=== PATIENT | female | born 1985 | race African-American/Black ===

== ENCOUNTER 2017-01-27 13:52 | Emergency (ER) | payer OTHER ==
[2017-01-27] MEDS ORDERED: Adacel (T-DAP) 0.5 ML VIAL ONE (14:31)
== END 2017-01-27 14:37 | disposition home or self-care (01) ==
LOC: NAV ERS 13:52
DX: T63.481A Toxic effect of venom of other arthropod, accidental (unintentional), initial encounter (principal); R21 Rash and other nonspecific skin eruption; L08.9 Local infection of the skin and subcutaneous tissue, unspecified; E11.9 Type 2 diabetes mellitus without complications; Z87.891 Personal history of nicotine dependence
CPT/HCPCS: 90471; 90715

== ENCOUNTER 2017-03-19 09:57 | Emergency (ER) | payer OTHER ==
[~2017-03-19 09:57] MED LIST: Iopamidol 370 76% 100 ML VIAL ONE
[2017-03-19] MEDS ORDERED: Ketorolac Tromethamine 30 MG/ML VIAL ONE (10:27)
[2017-03-19 10:47] LABS: Bilirubin Negative (Negative); Blood, Urine Negative (Negative); Clarity Clear (Clear); Glucose, Urine (Dipstick) Negative (Negative); Leukocyte Trace (Negative); Nitrite Negative (Negative); Protein, Urine (Dipstick) Negative (Neg-Trace); Specific Gravity, Urine 1.025 (1.005-1.030); Urobilinogen 0.2 mg/dL (0.2-1.0); pH, Urine 5.5 (5.0-9.0)
[2017-03-19 11:03] LABS: ALT (SGPT) 23 U/L (8-55); AST (SGOT) 15 U/L (5-34); Albumin 3.4 g/dL (3.5-5.0); Alkaline Phosphatase 91 U/L (40-150); Anion Gap 14 mmol/L (10-20); BUN (Urea Nitrogen) 14 mg/dL (7.0-18.7); Bilirubin, Total 0.2 mg/dL (0.2-1.2); Calc. Creatinine Clearance 0 mL/min (70-130); Calcium 8.6 mg/dL (7.8-10.44); Carbon Dioxide 23 mmol/L (22-29); Chloride 105 mmol/L (98-107); Estimated GFR-MDRD 86; Globulin 3.7 g/dL (2.4-3.5); Glucose 191 mg/dL (70-105); Protein, Total 7.1 g/dL (6.0-8.3); Sodium 138 mmol/L (136-145)
[2017-03-19 11:06] LABS: Bacteria/HPF 1+ HPF (None Seen); Other Microscopic Description NO; RBC/HPF None Seen HPF (0-3); Trichomonas/HPF 1+ HPF (None Seen)
--- NOTE | 2017-03-19 12:41 | CT ---
CT OF ABDOMEN AND PELVIS PERFORMED WITH INTRAVENOUS CONTRAST ENHANCEMENT: History: Patient with history of right ovarian cyst. Has right lower abdominal pain. Comparison: 07-06-16 CT. FINDINGS: The lung bases are clear. There is diffuse fatty changes of the liver. It measures 22 cm in length. The spleen is within dianna l limits of size. Pancreas and gallbladder regions are unremarkable. Right and left adrenal glands and right and left kidneys are normal. There is no significant periaor tic or mesenteric adenopathy. CT OF PELVIS PERFORMED WITH CONTRAST ENHANCEMENT: A 3.8 cm hypodense lesion involving the right ovary was noted on the prior exam. This is increased s lightly in size and measures in the 4 cm range on today's study. No free fluid. No adenopathy or mas s. No inflammatory process. IMPRESSION: 1. Diffuse fatty changes of the liver which is borderline enlarged. 2. Approximately 4 cm right ovarian cystic appearing lesion which is increased slightly in size as c ompared to the previous exam. Consideration for pelvic ultrasound may be indicated if the patient's pain is related to this area. POS: [facility]
[2017-03-19 14:01] LABS: White Blood Cell (WBC) Count 8.8 thou/uL (4.8-10.8)
[2017-03-19 14:02] LABS: Eosinophils 1 % (0-10); Hemoglobin 10.8 g/dL (12.0-16.0); Lymphocytes 31 % (21-51); MDiff Complete? YES; Manual Diff?? YES; Mean Corpuscular HGB CONC 30.3 g/dL (32.0-36.0); Mean Corpuscular Hemoglobin 22.5 pg (27.0-31.0); Mean Corpuscular Volume 74.1 fL (81.0-99.0); Mean Platelet Volume 8.2 fL (7.4-10.4); Monocytes 4 % (0-10); Neutrophil 64 % (42-75); Platelet Count 267 thou/uL (130-400); RBC Distribution Width 15.7 % (11.5-14.5)
[2017-03-19 14:03] LABS: Anisocytosis SLIGHT = 6-15 cells (100X) (0-5/hpf); BHCG - Serum NEGATIVE (NEGATIVE); Microcytosis SLIGHT = 6-15 cells (100X) (0-5/hpf); Pregs Control Bar Appear? YES (CONTROL BAR)
[2017-03-19 15:53] LABS: PLT Morphology Comment Appears Adequate
== END 2017-03-19 12:35 | disposition home or self-care (01) ==
LOC: NAV ERS 09:57
DX: N83.201 Unspecified ovarian cyst, right side (principal); E11.9 Type 2 diabetes mellitus without complications; Z87.891 Personal history of nicotine dependence
CPT/HCPCS: 74177; 80053; 81003; 81015; 84703; 85025; 96374; J1885

== ENCOUNTER 2017-08-30 00:21 | Emergency (ER) | payer OTHER, SELFPAY ==
[2017-08-30] MEDS ORDERED: Ibuprofen 800 MG TAB ONE (00:34)
== END 2017-08-30 00:47 | disposition home or self-care (01) ==
LOC: NAV ERS 00:21
DX: H60.91 Unspecified otitis externa, right ear (principal); E66.9 Obesity, unspecified; E11.9 Type 2 diabetes mellitus without complications; Z87.891 Personal history of nicotine dependence
CPT/HCPCS: 99282

== ENCOUNTER 2018-03-09 14:15 | Emergency (ER) | payer OTHER, SELFPAY ==
[2018-03-09] MEDS ORDERED: diphenhydrAMINE 50 MG/ML VIAL ONE (14:21)
[2018-03-09] MEDS ORDERED: methylPREDNISolone Sod Succ/PF 125 MG/2 ML VIAL ONE (14:21)
== END 2018-03-09 14:55 | disposition home or self-care (01) ==
LOC: NAV ERS 14:15
DX: T78.40XA Allergy, unspecified, initial encounter (principal); E11.9 Type 2 diabetes mellitus without complications; F17.210 Nicotine dependence, cigarettes, uncomplicated; Z79.899 Other long term (current) drug therapy
CPT/HCPCS: 96372; 99406; J1200; J2930

== ENCOUNTER 2018-05-13 04:21 | Emergency (ER) | payer OTHER, SELFPAY ==
[2018-05-13] MEDS ORDERED: Cyclobenzaprine 10 MG TAB ONE (04:46)
[2018-05-13] MEDS ORDERED: Ketorolac Tromethamine 60 MG/2 ML VIAL ONE (04:46)
== END 2018-05-13 05:04 | disposition home or self-care (01) ==
LOC: NAV ERS 04:21
DX: M43.6 Torticollis (principal); E11.9 Type 2 diabetes mellitus without complications; F17.210 Nicotine dependence, cigarettes, uncomplicated; Z79.84 Long term (current) use of oral hypoglycemic drugs
CPT/HCPCS: 96372; J1885

== ENCOUNTER 2018-05-14 12:49 | Emergency (ER) | payer OTHER, SELFPAY ==
[2018-05-14] MEDS ORDERED: Ondansetron HCl/PF 4 MG/2 ML Vial ONE (13:38)
[2018-05-14 14:00] LABS: ALT (SGPT) 24 U/L (8-55); AST (SGOT) 15 U/L (5-34); Albumin 3.7 g/dL (3.5-5.0); Alkaline Phosphatase 90 U/L (40-150); Anion Gap 13 mmol/L (10-20); BUN (Urea Nitrogen) 17 mg/dL (7.0-18.7); Bilirubin, Total 0.1 mg/dL (0.2-1.2); Calc. Creatinine Clearance 0 mL/min (70-130); Calcium 8.8 mg/dL (7.8-10.44); Carbon Dioxide 23 mmol/L (22-29); Chloride 105 mmol/L (98-107); Estimated GFR-MDRD Greater than 90; Globulin 3.2 g/dL (2.4-3.5); Glucose 153 mg/dL (70-105); Potassium 3.9 mmol/L (3.5-5.1); Protein, Total 6.9 g/dL (6.0-8.3); Sodium 137 mmol/L (136-145)
[2018-05-14 14:09] LABS: Hemoglobin 11.7 g/dL (12.0-16.0); Mean Corpuscular Hemoglobin 22.3 pg (27.0-31.0); Mean Corpuscular Volume 74.3 fL (78.0-98.0); Mean Platelet Volume 8.7 fL (7.4-10.4); Platelet Count 309 thou/uL (130-400); Red Blood Cell (RBC) Count 5.23 mill/uL (4.20-5.40); White Blood Cell (WBC) Count 8.1 thou/uL (4.8-10.8)
[2018-05-14 14:10] LABS: MDiff Complete? YES
[2018-05-14 14:11] LABS: Anisocytosis SLIGHT = 6-15 cells (100X) (0-5/hpf); Eosinophils 2 % (0-10); Lymphocytes 33 % (21-51); Microcytosis SLIGHT = 6-15 cells (100X) (0-5/hpf); Monocytes 7 % (0-10); Neutrophil 58 % (42-75); PLT Morphology Comment Appears Adequate
[2018-05-14 14:13] LABS: BHCG - Serum Negative (NEGATIVE); Pregs Control Bar Appear? YES (CONTROL BAR)
--- NOTE | 2018-05-14 15:10 | CT ---
CT SINUSES: History: Neck pain. Patient fell backwards onto fireplace Saturday. Patient woke up this morning with s evere worsening pain. Technique: Axial images were obtained with coronal reconstructions. FINDINGS: There is extensive opacification of the left maxillary sinus compatible with a large left maxillary s inus mucous retention cyst. The other paranasal sinuses are well aerated. POS: [facility]
--- NOTE | 2018-05-15 07:26 | CT ---
CT CERVICAL SPINE: HISTORY: Fall with neck pain. TECHNIQUE: Axial images are obtained with coronal and sagittal reconstructions. FINDINGS: Osteophytes seen along the anterior aspect of the C3 vertebral body. No evidence of acute fractures or bony lesions seen. IMPRESSION: Normal CT cervical spine. POS: [facility]
== END 2018-05-14 15:52 | disposition home or self-care (01) ==
LOC: NAV ERS 12:49
DX: S16.1XXA Strain of muscle, fascia and tendon at neck level, initial encounter (principal); J32.9 Chronic sinusitis, unspecified; E11.9 Type 2 diabetes mellitus without complications; F41.9 Anxiety disorder, unspecified; F31.9 Bipolar disorder, unspecified; F17.210 Nicotine dependence, cigarettes, uncomplicated; Z79.84 Long term (current) use of oral hypoglycemic drugs; Z79.899 Other long term (current) drug therapy; W18.30XA Fall on same level, unspecified, initial encounter
CPT/HCPCS: 36415; 72125; 80053; 84703; 85025; 96374; 96375; J2270; J2405

== ENCOUNTER 2019-08-05 18:14 | Emergency (ER) | payer BC, SELFPAY ==
[2019-08-05 19:09] LABS: Bilirubin Negative (Negative); Blood, Urine Trace (Negative); Clarity Clear (Clear); Glucose, Urine (Dipstick) Negative (Negative); Leukocyte Negative (Negative); Nitrite Negative (Negative); Protein, Urine (Dipstick) Negative (Neg-Trace)
[2019-08-05] MEDS ORDERED: Ibuprofen 800 MG TAB ONE (19:10)
[2019-08-05 19:15] LABS: Pregnancy Test - Urine (BHCG) Negative (Negative); Pregu Control Background? CLEAR/WHITE (CLR/WHITE); Pregu Control Bar Appear? YES (CONTROL BAR); Specific Gravity 1.015 (1.002-1.036)
[2019-08-05 19:17] LABS: RBC/HPF 0-3 HPF (0-3); Squamous Epithelial 0-3 HPF (0-3); WBC/HPF 0-3 HPF (0-3)
[2019-08-05 20:25] LABS: #Basophils 0.1 thou/uL (0.0-0.2); #Eosinphils 0.1 thou/uL (0.0-0.7); #Lymphocytes 1.6 thou/uL (1.20-3.40); #Monocytes 0.5 thou/uL (0.11-0.59); #Neutrophils 5.9 thou/uL (1.40-6.50); %Basophils 1.2 % (0.0-1.0); %Eosinophils 1.6 % (0.0-10.0); %Lymphocytes 19.4 % (21.0-51.0); %Neutrophils 71.8 % (42.0-75.0); Hemoglobin 10.8 g/dL (12.0-16.0); Mean Corpuscular HGB CONC 30.6 g/dL (32.0-36.0); Mean Corpuscular Hemoglobin 23.3 pg (27.0-31.0); Platelet Count 276 thou/uL (130-400); RBC Distribution Width 14.4 % (11.5-14.5); Red Blood Cell (RBC) Count 4.65 mill/uL (4.20-5.40); White Blood Cell (WBC) Count 8.2 thou/uL (4.8-10.8)
[2019-08-05] MEDS ORDERED: Morphine 4 MG/ML VIAL ONE (20:25)
[2019-08-05 20:32] LABS: ALT (SGPT) 29 U/L (8-55); AST (SGOT) 18 U/L (5-34); Albumin 3.5 g/dL (3.5-5.0); Alkaline Phosphatase 94 U/L (40-110); Anion Gap 15 mmol/L (10-20); BUN (Urea Nitrogen) 12 mg/dL (7.0-18.7); Bilirubin, Total 0.2 mg/dL (0.2-1.2); Calc. Creatinine Clearance 0 mL/min (70-130); Calcium 8.3 mg/dL (7.8-10.44); Carbon Dioxide 22 mmol/L (22-29); Chloride 106 mmol/L (98-107); Estimated GFR-MDRD 84; Globulin 3.2 g/dL (2.4-3.5); Glucose 118 mg/dL (70-105); Lipase 41 U/L (8-78); Protein, Total 6.7 g/dL (6.0-8.3); Sodium 139 mmol/L (136-145)
[2019-08-05] MEDS ORDERED: Acetaminophen 500 MG TAB ONE (20:34)
--- NOTE | 2019-08-05 20:54 | CT ---
CT ABDOMEN WITH CONTRAST CT PELVIS WITH CONTRAST: DATE: 08/05/2019 HISTORY: 31-year-old female with right lower quadrant abdominal pain, chills, and diarrhea. TECHNIQUE: IV injection of iodinated contrast media: Administered Oral contrast media:Not administered FINDINGS: Liver: No focal solid mass. Spleen: No splenomegaly.. Pancreas: No mass or surrounding fat stranding.. Adrenals: No mass.. Kidneys: No hydronephrosis or enhancement abnormalities.. Ureters: No dilation. Bladder: No pathology identified. Abdominal aorta: No aneurysm. Small bowel: No dilation. Colon: No adjacent fat stranding. Appendix: No dilation or adjacent fat stranding.. Free air: None. Free fluid: None. There are numerous mildly enlarged mesenteric lymph nodes throughout the abdomen. There is a thin-walled, approximately 4.3 x 5.3 x 4.6 cm cyst within the pelvic cavity, centered slig htly to the right of midline. There has been no major interval change compared to prior CTs of 03/19/2017 and 06/19/2018 IMPRESSION: 1. No major pathology identified.. 2. Normal appendix. 3. Mesenteric lymphadenitis 4. A greater than 5 cm adnexal cyst in the pelvis with minimal change since 2017.
--- NOTE | 2019-08-05 21:24 | RAD ---
RADIOGRAPH CHEST 1 VIEW: DATE: 08/05/2019 HISTORY: 34-year-old female with fever FINDINGS: The visualized lung costa are clear. The cardiomediastinal silhouette and hilar shadows are normal. The lateral costophrenic angles are sharp. The osseous structures appear normal. There is no pneumothorax. IMPRESSION: Negative.
== END 2019-08-05 21:55 | disposition home or self-care (01) ==
LOC: NAV ERS 18:14
DX: B34.9 Viral infection, unspecified (principal); E11.9 Type 2 diabetes mellitus without complications; F41.9 Anxiety disorder, unspecified; F31.9 Bipolar disorder, unspecified; Z87.891 Personal history of nicotine dependence
CPT/HCPCS: 71045; 74177; 80053; 81003; 81015; 81025; 83690; 85025; 87081; 87430; 87804; 96374; J2270; Q9967

== ENCOUNTER 2021-07-11 11:59 | Emergency (ER) | payer OTHER | END 2021-07-11 13:26 | disposition home or self-care (01) | LOC: NAV ERS 11:59 | DX: K11.20 Sialoadenitis, unspecified (principal); E11.9 Type 2 diabetes mellitus without complications; I10 Essential (primary) hypertension; Z79.899 Other long term (current) drug therapy | CPT/HCPCS: 99283 ==

== ENCOUNTER 2021-07-30 12:41 | Emergency (ER) | payer OTHER, SELFPAY | END 2021-07-30 13:25 | disposition home or self-care (01) | LOC: NAV ERS 12:41 | DX: J06.9 Acute upper respiratory infection, unspecified (principal); E11.9 Type 2 diabetes mellitus without complications; Z79.899 Other long term (current) drug therapy | CPT/HCPCS: 99283 ==

== ENCOUNTER 2022-09-27 18:28 | Emergency (ER) | payer BC, SELFPAY ==
[2022-09-27] MEDS ORDERED: Ondansetron ODT 4 MG TAB ONE (18:58)
[2022-09-27] MEDS ORDERED: Ibuprofen 800 MG TAB ONE (19:08)
[2022-09-27] MEDS ORDERED: Oseltamivir 75 MG CAP ONE (20:09)
== END 2022-09-27 20:20 | disposition home or self-care (01) ==
LOC: NAV ERS 18:28
DX: J10.1 Influenza due to other identified influenza virus with other respiratory manifestations (principal); R00.0 Tachycardia, unspecified; E11.9 Type 2 diabetes mellitus without complications
CPT/HCPCS: 87804; 99283; Q0162

== ENCOUNTER 2024-11-11 13:52 | Emergency (ER) | payer SELFPAY ==
[2024-11-11 14:27] LABS: Bilirubin Negative (Negative); Blood, Urine Negative (Negative); Clarity Clear (Clear); Glucose, Urine (Dipstick) >=1000 mg/dL (Negative); Ketone, Urine Negative (Negative); Leukocyte Negative (Negative); Nitrite Negative (Negative); Protein, Urine (Dipstick) Negative (Neg-Trace); Urobilinogen 0.2 mg/dL (Less than 2)
[2024-11-11 14:34] LABS: CAUTI Indications for Culture Dysuria,urgency,freq; RBC/HPF 0-3 HPF (0-3); Specific Gravity, Urine 1.032 (1.002-1.036)
[2024-11-11 14:35] LABS: Transitional Epithelial 0-3 HPF (None Seen)
[2024-11-11 14:36] LABS: Pregnancy Test - Urine (BHCG) Negative (Negative); Pregu Control Background? CLEAR/WHITE (CLR/WHITE); Pregu Control Bar Appear? YES (CONTROL BAR); Specific Gravity 1.032 (1.002-1.036); Urine Culture Reflex No No
[2024-11-11] MEDS ORDERED: Fluconazole 100 MG TAB ONE (15:12)
== END 2024-11-11 15:21 | disposition home or self-care (01) ==
LOC: NAV ERS 13:52
DX: B37.31 Acute candidiasis of vulva and vagina (principal); E11.9 Type 2 diabetes mellitus without complications
CPT/HCPCS: 36416; 81001; 81025; 99283

== ENCOUNTER 2024-11-25 21:58 | Emergency (ER) | payer SELFPAY ==
[2024-11-25 22:58] LABS: #Basophils 0.1 thou/uL (0.0-0.2); #Eosinophils 0.1 thou/uL (0.0-0.7); #Lymphocytes 2.8 thou/uL (1.20-3.40); #Monocytes 0.4 thou/uL (0.11-0.59); #Neutrophils 4.8 thou/uL (1.40-6.50); %Basophils 0.8 % (0.0-1.0); %Eosinophils 1.8 % (0.0-10.0); %Lymphocytes 34.2 % (21.0-51.0); %Monocytes 4.7 % (0.0-10.0); %Neutrophils 58.4 % (42.0-75.0); Hematocrit 41.3 % (36.0-47.0); Mean Corpuscular Hemoglobin 22.4 pg (27.0-31.0); Mean Corpuscular Volume 77.2 fl (78.0-98.0); Mean Platelet Volume 9.4 fL (7.4-10.4); Platelet Count 264 10x3/uL (130-400); RBC Distribution Width 12.9 % (11.5-14.5); Red Blood Cell (RBC) Count 5.35 mill/uL (4.20-5.40); White Blood Cell (WBC) Count 8.1 10x3/uL (4.8-10.8)
[2024-11-25 23:09] LABS: Base Excess-Venous 0.9 mmol/L (-2.0 to 3.0); Bicarbonate (HCO3v) 24.8 mmol/L (22.0-28.0); CO2 Tension (PvCO2) 36.4 mmHg (42.0-51.0); Calcium, Ionized 1.11 mmol/L (1.15-1.33); Chloride 100 mmol/L (98-107); Hemoglobin - Calc 14.4 g/dL (12.0-16.0); Potassium 4.3 mmol/L (3.5-5.1); Sodium 135 mmol/L (138-145); T. Carbon Dioxide 25.9 mmol/L (22.0-28.0); vO2 Saturation-calc 85.5 % (60.0-85.0)
[2024-11-25] MEDS ORDERED: Insulin Regular, Human 100 UNIT/ML 10 ML VIAL ONE (23:10)
[2024-11-25] MEDS ORDERED: Sodium Chloride 0.9% 1,000 ML ONE (23:10)
[2024-11-25 23:11] LABS: Troponin I Less than 0.010 ng/mL (< 0.028)
[2024-11-25 23:13] LABS: ALT (SGPT) 22 U/L (Less than 34); AST (SGOT) 14 U/L (11-34); Albumin 3.1 g/dL (3.1-4.5); Alkaline Phosphatase 121 U/L (40-110); Anion Gap 15 mmol/L (10-20); BUN (Urea Nitrogen) 13 mg/dL (7.0-18.7); Bilirubin, Total 0.2 mg/dL (0.3-1.2); Calc. Creatinine Clearance 0 mL/min (70-130); Calcium 9.2 mg/dL (7.8-10.44); Carbon Dioxide 25 mmol/L (22-29); Chloride 100 mmol/L (98-107); Estimated GFR 54; Globulin 3.4 g/dL (2.4-3.5); Potassium 4.5 mmol/L (3.5-5.1); Protein, Total 6.5 g/dL (6.0-8.3); Sodium 135 mmol/L (136-145)
[2024-11-25 23:15] LABS: Glucose 653 mg/dL (70-105)
[2024-11-25 23:21] LABS: Bilirubin Negative (Negative); Blood, Urine Negative (Negative); Clarity Clear (Clear); Glucose, Urine (Dipstick) 500 mg/dL (Negative); Ketone, Urine Negative (Negative); Leukocyte Negative (Negative); Nitrite Negative (Negative); Protein, Urine (Dipstick) Negative (Neg-Trace); Urobilinogen 0.2 mg/dL (Less than 2)
[2024-11-25 23:24] LABS: Bacteria/HPF None Seen HPF (None Seen); CAUTI Indications for Culture Fever or rigors; RBC/HPF 0-3 HPF (0-3); WBC/HPF 0-3 HPF (0-3)
[2024-11-25 23:25] LABS: Urine Culture Reflex No No
[2024-11-25 23:30] LABS: Amphetamine Not Detected (NotDetected); Barbiturates Screen Not Detected (NotDetected); Benzodiazepine Screen Not Detected (NotDetected); Cocaine Metabolite Screen Not Detected (NotDetected); Methadone Not Detected (NotDetected); Methamphetamine Not Detected (NotDetected); Opiate Screen Not Detected (NotDetected); Oxycodone Screen Not Detected (NotDetected); Phencyclidine (PCP) Not Detected (NotDetected); THC/Cannabinoid Screen Not Detected (NotDetected); Tricyclic Screen Not Detected (NotDetected)
[2024-11-25] MEDS ORDERED: Lorazepam 0.5 MG TAB ONE (23:38)
== END 2024-11-26 00:46 | disposition home or self-care (01) ==
LOC: NAV ERS 21:58
DX: G40.909 Epilepsy, unspecified, not intractable, without status epilepticus (principal); E11.65 Type 2 diabetes mellitus with hyperglycemia; B37.31 Acute candidiasis of vulva and vagina
CPT/HCPCS: 36415; 36416; 80053; 80175; 80306; 81001; 82010; 82330; 82435; 82803; 84132; 84295; 84443; 84484; 85014; 85025; 93005; 96360; J1815; J7030

== ENCOUNTER 2024-11-30 08:00 | Emergency (ER) | payer SELFPAY ==
[2024-11-30] MEDS ORDERED: Ibuprofen 200 MG TAB ONE (08:36)
== END 2024-11-30 08:45 | disposition home or self-care (01) ==
LOC: NAV ERS 08:00
DX: J11.1 Influenza due to unidentified influenza virus with other respiratory manifestations (principal)
CPT/HCPCS: 99283

== ENCOUNTER 2024-12-26 21:45 | Emergency (ER) | payer SELFPAY ==
[2024-12-26] MEDS ORDERED: Lidocaine 1% (PF) 30 ML VIAL ONE (22:10)
[2024-12-26] MEDS ORDERED: Fluconazole 100 MG TAB ONE (22:23)
[2024-12-26] MEDS ORDERED: Sulfameth/Trimethoprim DS 800-160mg TAB ONE (22:23)
[2024-12-26] MEDS ORDERED: Ibuprofen 800 MG TAB ONE (22:33)
== END 2024-12-26 22:39 | disposition home or self-care (01) ==
LOC: NAV ERS 21:45
DX: L02.214 Cutaneous abscess of groin (principal); B37.31 Acute candidiasis of vulva and vagina; E11.9 Type 2 diabetes mellitus without complications; Z79.4 Long term (current) use of insulin
CPT/HCPCS: 10060; 36416; 87070; 87077; 87186; 87205